=== PATIENT | female | born 1945 | race Caucasian/White ===

== ENCOUNTER 2016-03-29 14:58 | Observation (INO) | payer BC ==
[~2016-03-29] VITALS: Ht 154.9 cm; Wt 83.8 kg
[2016-03-29] MEDS ORDERED: ASPIRIN 81 MG CHEW TAB PO STA (15:04)
[2016-03-29] MEDS ORDERED: TEMAZEPAM 15 MG CAP PO PRN (15:05)
[2016-03-29] MEDS ORDERED: NITROGLYCERIN SL 0.4 MG TAB SL PRN (15:05)
[2016-03-29] MEDS ORDERED: ACETAMINOPHEN 325 MG TAB PO PRN (15:05)
[2016-03-29] MEDS ORDERED: DOCUSATE SOD 100 MG CAP PO PRN (15:05)
[2016-03-29] MEDS ORDERED: ALU/MAG/SIM 30 ML UDC PO PRN (15:05)
[2016-03-29] MEDS ORDERED: LORAZEPAM 0.5 MG TAB PO PRN (15:05)
[2016-03-29] MEDS ORDERED: DEXTROSE 50% SYRINGE 50 ML IV PRN (15:05)
[2016-03-29] MEDS ORDERED: ONDANSETRON 4 MG VIAL IV PRN (15:05)
[2016-03-29] MEDS ORDERED: SALINE FLUSH 10 ML FLUSH PRN (15:05)
[2016-03-29] MEDS ORDERED: TEMAZEPAM 7.5 MG CAP PO PRN (15:05)
[2016-03-29] MEDS ORDERED: GLUCAGON 1 MG VIAL IM PRN (15:05)
[2016-03-29] MEDS ORDERED: TRAMADOL 50 MG TAB PO PRN (15:05)
[2016-03-29 16:32] VITALS: BP_SYST 174; BP_SYST 179; RESP 18; TEMP 98.2
[2016-03-29 16:33] VITALS: Ht 154.9 cm; Wt 83.8 kg
[2016-03-29] MEDS: Furosemide 40 MG/4 ML VIAL IV SCH (16:54)
[2016-03-29 17:39] VITALS: RESP 16
[2016-03-29 19:25] VITALS: BP_SYST 173; RESP 17; TEMP 98.2
[2016-03-29] MEDS: SALINE FLUSH 10 ML FLUSH SCH (20:21)
[2016-03-29 22:03] VITALS: BP_SYST 142
[2016-03-29 23:41] VITALS: BP_SYST 144; RESP 17; TEMP 98.1
[2016-03-30 03:12] VITALS: BP_SYST 183; RESP 18; TEMP 99.1
[2016-03-30] MEDS ORDERED: SODIUM CHLORIDE 0.9% FLUSH BAG 500 ML IV SCH (06:00)
[2016-03-30 07:00] VITALS: BP_SYST 183; RESP 18; TEMP 98.3
[2016-03-30] MEDS ORDERED: ASPIRIN 81 MG CHEW TAB PO SCH (08:00)
[2016-03-30] MEDS: Furosemide 40 MG/4 ML VIAL IV SCH (08:12)
[2016-03-30] MEDS: SALINE FLUSH 10 ML FLUSH SCH (08:12)
[2016-03-30] MEDS ORDERED: amLODIPine 10 MG TAB PO SCH (10:35)
[2016-03-30] MEDS ORDERED: cloNIDine 0.2 MG TAB PO SCH (10:35)
[2016-03-30] MEDS ORDERED: LEXISCAN 0.4 MG/5 ML SYRINGE IV ONE (12:45)
[2016-03-30 17:15] VITALS: BP_SYST 176; RESP 17; TEMP 97.5
[2016-03-30 19:27] VITALS: BP_SYST 176; RESP 17; TEMP 97.5
[2016-03-30 19:29] VITALS: BP_SYST 140; RESP 16; TEMP 98.8
[2016-03-31] MEDS ORDERED: LABETALOL 100 MG TAB PO SCH (09:00)
== END 2016-03-30 18:39 | disposition other institution (70) ==
LOC: ENRESERVDT → ENRESERVTM → PCU 15:41 → ENPENDDIS 15:41
PROVIDERS: ADMIT Specialist; ATTEND Specialist
DX: I20.0 Unstable angina (principal); I25.10 Atherosclerotic heart disease of native coronary artery without angina pectoris; I10 Essential (primary) hypertension; E11.9 Type 2 diabetes mellitus without complications; Z87.891 Personal history of nicotine dependence; J44.9 Chronic obstructive pulmonary disease, unspecified; F32.9 Major depressive disorder, single episode, unspecified; K21.9 Gastro-esophageal reflux disease without esophagitis; Z79.899 Other long term (current) drug therapy; Z79.82 Long term (current) use of aspirin
CPT/HCPCS: 71010; 78452; 80053; 80061; 82550; 82947; 83721; 83735; 84484; 85025; 85610; 85730; 93005; 93017; A9500; G0378; J2785; 94799